=== PATIENT | male | born 1955 | race Caucasian/White ===

== ENCOUNTER 2021-11-27 12:19 | Emergency (ER) | payer MEDICARE ==
[2021-11-27 12:39] VITALS: RESP 20
[2021-11-27] MEDS ORDERED: SODIUM CHLORIDE 0.9% 500 ML 500 ML IV STA (12:49)
--- NOTE | 2021-11-27 13:25 | ED ---
General Adult HPI - General Chief complaint: Shortness of Breath Stated complaint: Respiratory distress Time Seen by Provider: 11/27/21 12:30 Source: patient, EMS, RN notes reviewed, old records reviewed Mode of arrival: EMS Limitations: physical limitation - History of Present Illness Initial comments: This is a 66-year-old male who is a quadriplegic. Patient comes in today because he states about a week ago a little bit of a cold and then on Friday started having some difficulty breathing Friday got a little worse on the little worse but last night he states he was unable to sleep because every time he shut his eyes he felt like he couldn't breathe. Patient states his pulse ox however throughout those days of dyspnea have been normal. Patient denies chest pain or palpitations. Patient denies any fever chills per patient states she had a slight cough about a week ago last couple days. Patient states he is not vaccinated. Patient denies any abdominal pain. Patient any vomiting or diarrhea. Patient is on Coumadin because he had a clot many years ago from being quadriplegic. - Related Data Home Medications Medication Instructions Recorded Confirmed Baclofen [Lioresal] 10 mg PO BID 11/27/21 11/27/21 Celecoxib [CeleBREX] 200 mg PO BID 11/27/21 11/27/21 Ergocalciferol [Vitamin D2 (1250 1,250 mcg PO Q7D 11/27/21 11/27/21 Mcg = 97572 Iu)] Folic Acid 1 mg PO DAILY 11/27/21 11/27/21 Gabapentin [Neurontin] 300 mg PO HS 11/27/21 11/27/21 Sulfamethoxazole/Trimethoprim 1 tab PO Q12H 11/27/21 11/27/21 [Bactrim DS 800-160 mg] Warfarin [Coumadin] 2 mg PO SUSA 11/27/21 11/27/21 Warfarin [Coumadin] 3 mg PO MOTUWETHFR 11/27/21 11/27/21 Allergies Allergy/AdvReac Type Severity Reaction Status Date / Time levofloxacin [From Levaquin] Allergy Swelling Verified 11/27/21 14:26 Review of Systems ROS Statement: Those systems with pertinent positive or pertinent negative responses have been documented in the HPI. ROS Other: All systems not noted in ROS Statement are negative. Past Medical History Past Medical History: Deep Vein Thrombosis (DVT) Additional Past Medical History / Comment(s): pt has been paralyzed since age 12 History of Any Multi-Drug Resistant Organisms: None Reported Past Surgical History: Orthopedic Surgery Additional Past Surgical History / Comment(s): neck, ileostomy Past Psychological History: No Psychological Hx Reported Smoking Status: Never smoker Past Alcohol Use History: None Reported Past Drug Use History: None Reported General Exam - General Exam Comments Initial Comments: GENERAL: Patient is well-developed and well-nourished. Patient is nontoxic and well- hydrated and is in mild distress. ENT: Neck is soft and supple. No significant lymphadenopathy is noted. Oropharynx is clear. Moist mucous membranes. Neck has full range of motion without eliciting any pain. EYES: The sclera were anicteric and conjunctiva were pink and moist. Extraocular movements were intact and pupils were equal round and reactive to light. Eyelids were unremarkable. PULMONARY: Unlabored respirations. Good breath sounds bilaterally. No audible rales rhonchi or wheezing was noted. CARDIOVASCULAR: There is a regular rate and rhythm without any murmurs gallops or rubs. ABDOMEN: Soft and nontender with normal bowel sounds. SKIN: Skin is clear with no lesions or rashes and otherwise unremarkable. NEUROLOGIC: Patient is alert and oriented x3. Cranial nerves II through XII are grossly intact. MUSCULOSKELETAL: Patient is unable to move his lower extremities. LYMPHATICS: No significant lymphadenopathy is noted PSYCHIATRIC: Mildly anxious Limitations: physical limitation Course Vital Signs 11/27/21 12:30 Temperature 98.2 F Pulse Rate 63 Respiratory 20 Rate Blood Pressure 124/91 O2 Sat by Pulse 96 Oximetry Medical Decision Making - Medical Decision Making EKG shows sinus bradycardia with occasional PAC at 60 bpm MD interval 160 QRS is 88 QT interval is 456 QTC is 427. Patient's EKG shows no ST segment elevation or depression. Patient was positive for COVID he did want a monoclonal antibody so the patient received monoclonal antibodies in the emergency department CT of the chest showed no pulmonary embolism or pneumonia - Lab Data Result diagrams: 11/27/21 12:56 11/27/21 12:56 Lab Results 11/27/21 11/27/21 11/27/21 Range/Units 12:56 12:56 12:56 WBC 3.8 (3.8-10.6) k/uL RBC 4.92 (4.30-5.90) m/uL Hgb 14.5 (13.0-17.5) gm/dL Hct 44.4 (39.0-53.0) % MCV 90.3 (80.0-100.0) fL MCH 29.4 (25.0-35.0) pg MCHC 32.6 (31.0-37.0) g/dL RDW 13.5 (11.5-15.5) % Plt Count 170 (150-450) k/uL MPV 8.7 Neutrophils % 69 % Lymphocytes % 18 % Monocytes % 6 % Eosinophils % 4 % Basophils % 0 % Neutrophils # 2.6 (1.3-7.7) k/uL Lymphocytes # 0.7 L (1.0-4.8) k/uL Monocytes # 0.2 (0-1.0) k/uL Eosinophils # 0.2 (0-0.7) k/uL Basophils # 0.0 (0-0.2) k/uL PT 19.3 H (9.0-12.0) sec INR 1.9 H (<1.2) APTT 36.5 H (22.0-30.0) sec Sodium 138 (137-145) mmol/L Potassium 3.8 (3.5-5.1) mmol/L Chloride 109 H (98-107) mmol/L Carbon Dioxide 21 L (22-30) mmol/L Anion Gap 8 mmol/L BUN 14 (9-20) mg/dL Creatinine 0.78 (0.66-1.25) mg/dL Est GFR (CKD-EPI)AfAm >90 (>60 ml/min/1.73 sqM) Est GFR (CKD-EPI)NonAf >90 (>60 ml/min/1.73 sqM) Glucose 97 (74-99) mg/dL Plasma Lactic Acid Sreedhar (0.7-2.0) mmol/L Calcium 9.1 (8.4-10.2) mg/dL Magnesium 2.3 (1.6-2.3) mg/dL Total Bilirubin 0.8 (0.2-1.3) mg/dL AST 28 (17-59) U/L ALT 13 (4-49) U/L Alkaline Phosphatase 92 (38-126) U/L Troponin I (0.000-0.034) ng/mL Total Protein 7.1 (6.3-8.2) g/dL Albumin 4.0 (3.5-5.0) g/dL Coronavirus (PCR) (Not Detectd) 11/27/21 11/27/21 11/27/21 Range/Units 12:56 12:56 12:56 WBC (3.8-10.6) k/uL RBC (4.30-5.90) m/uL Hgb (13.0-17.5) gm/dL Hct (39.0-53.0) % MCV (80.0-100.0) fL MCH (25.0-35.0) pg MCHC (31.0-37.0) g/dL RDW (11.5-15.5) % Plt Count (150-450) k/uL MPV Neutrophils % % Lymphocytes % % Monocytes % % Eosinophils % % Basophils % % Neutrophils # (1.3-7.7) k/uL Lymphocytes # (1.0-4.8) k/uL Monocytes # (0-1.0) k/uL Eosinophils # (0-0.7) k/uL Basophils # (0-0.2) k/uL PT (9.0-12.0) sec INR (<1.2) APTT (22.0-30.0) sec Sodium (137-145) mmol/L Potassium (3.5-5.1) mmol/L Chloride (98-107) mmol/L Carbon Dioxide (22-30) mmol/L Anion Gap mmol/L BUN (9-20) mg/dL Creatinine (0.66-1.25) mg/dL Est GFR (CKD-EPI)AfAm (>60 ml/min/1.73 sqM) Est GFR (CKD-EPI)NonAf (>60 ml/min/1.73 sqM) Glucose (74-99) mg/dL Plasma Lactic Acid Sreedhar 0.9 (0.7-2.0) mmol/L Calcium (8.4-10.2) mg/dL Magnesium (1.6-2.3) mg/dL Total Bilirubin (0.2-1.3) mg/dL AST (17-59) U/L ALT (4-49) U/L Alkaline Phosphatase (38-126) U/L Troponin I <0.012 (0.000-0.034) ng/mL Total Protein (6.3-8.2) g/dL Albumin (3.5-5.0) g/dL Coronavirus (PCR) Detected A (Not Detectd) Disposition Clinical Impression: COVID-19 Disposition: HOME SELF-CARE Instructions (If sedation given, give patient instructions): Coronavirus Disease 2019 (COVID-19) Additional Instructions: Patient should return is any difficulty breathing or shortness of breath. Is patient prescribed a controlled substance at d/c from ED?: No Referrals: Daljit Grace MD [Primary Care Provider] - 1-2 days Time of Disposition: 17:03
[2021-11-27 13:54] LABS: Basophils % (A) 0 %; Eosinophils # (A) 0.2 k/uL (0-0.7); Eosinophils % (A) 4 %; HCT 44.4 % (39.0-53.0); HGB 14.5 gm/dL (13.0-17.5); Lymphocytes # (A) 0.7 k/uL (1.0-4.8); Lymphocytes % (A) 18 %; MCH 29.4 pg (25.0-35.0); MCHC 32.6 g/dL (31.0-37.0); MCV 90.3 fL (80.0-100.0); Mean Platelet Volume 8.7; Monocytes # (A) 0.2 k/uL (0-1.0); Monocytes % (A) 6 %; Neutrophils # (A) 2.6 k/uL (1.3-7.7); Neutrophils % (A) 69 %; Platelet Count 170 k/uL (150-450); RBC 4.92 m/uL (4.30-5.90); RDW 13.5 % (11.5-15.5); WBC 3.8 k/uL (3.8-10.6)
[2021-11-27 14:03] LABS: INR 1.9 (<1.2); Partial Thromboplastin Time 36.5 sec (22.0-30.0); Prothrombin Time 19.3 sec (9.0-12.0)
[2021-11-27 14:20] LABS: ALT 13 U/L (4-49); AST 28 U/L (17-59); African American GFR (CKD) >90 (>60 ml/min/1.73 sqM); Alkaline Phosphatase 92 U/L (38-126); Anion Gap 8 mmol/L; Blood Urea Nitrogen 14 mg/dL (9-20); Calcium 9.1 mg/dL (8.4-10.2); Carbon Dioxide 21 mmol/L (22-30); Chloride 109 mmol/L (98-107); Glucose 97 mg/dL (74-99); Magnesium 2.3 mg/dL (1.6-2.3); Non-African American GFR(CKD) >90 (>60 ml/min/1.73 sqM); Potassium 3.8 mmol/L (3.5-5.1); Sodium 138 mmol/L (137-145); Total Bilirubin 0.8 mg/dL (0.2-1.3); Total Protein 7.1 g/dL (6.3-8.2)
--- NOTE | 2021-11-27 15:10 | CT ---
EXAMINATION TYPE: CT chest angio for PE DATE OF EXAM: 11/27/2021 COMPARISON: none HISTORY: Difficulty breathing CT DLP: 721.9 mGycm CONTRAST: CT chest with contrast and 3D reconstruction with MIP imaging is performed with IV Contrast, patient injected with 100 mL of Isovue 370. Contrast-enhanced CT of the chest was performed through the course of the pulmonary arteries with radha g and mediastinal window settings submitted. 3D reconstruction with MIP imaging was also performed. PULMONARY ARTERIES: The pulmonary arteries and their major tributaries are patent. I do not see alysa dence for sizable filling defect to suggest pulmonary embolic process. LUNGS: The lungs are clear and free of infiltrate. Mild right basilar atelectasis and tiny effusion. No pulmonary nodule or mass is detected MEDIASTINUM: Thoracic aorta is of normal caliber.The heart is enlarged. No evidence for mediastinal mass. No mediastinal lymph nodes greater than 1cm. HILAR STRUCTURES: No evidence for mass. No hilar lymph nodes greater than 1 cm. UPPER ABDOMEN: No significant abnormality is seen. IMPRESSION: 1. No evidence for Pulmonary embolism at this time.
[2021-11-27] MEDS ORDERED: SODIUM CHLORIDE 0.9% 50 ML IVPB ONE (18:30)
[2021-11-27] MEDS ORDERED: SOTROVIMAB (EUA) 500 MG in SODIUM CHLORIDE 0.9% 100 ML IVPB ONE (18:30)
[2021-11-27 20:56] VITALS: BP 142/89; PULSE 58; TEMP 98.7
== END 2021-11-27 19:04 | disposition home or self-care (01) ==
LOC: EC 12:19
DX: U07.1 COVID-19 (principal); Z79.01 Long term (current) use of anticoagulants; Z86.718 Personal history of other venous thrombosis and embolism
CPT/HCPCS: 99285 ×2; 36415; 93005; 80053; 83605; 83735; 84484; 85025; 85610; 85730; 87040; 87070; 87205; 87077; 87186; 87635; 71275; M0247; Q9967; Q0247

== ENCOUNTER 2023-04-27 19:42 | Emergency (ER) | payer MEDICARE ==
[2023-04-27 19:50] VITALS: RESP 18; TEMP 97.4
[2023-04-27 22:20] LABS: Basophils % (A) 0 %; Eosinophils # (A) 0.6 k/uL (0-0.7); Eosinophils % (A) 7 %; HCT 40.8 % (39.0-53.0); HGB 13.8 gm/dL (13.0-17.5); Lymphocytes % (A) 11 %; MCH 29.5 pg (25.0-35.0); MCHC 33.8 g/dL (31.0-37.0); MCV 87.2 fL (80.0-100.0); Mean Platelet Volume 8.7; Monocytes # (A) 0.6 k/uL (0-1.0); Monocytes % (A) 7 %; Neutrophils # (A) 6.2 k/uL (1.3-7.7); Neutrophils % (A) 73 %; Platelet Count 200 k/uL (150-450); RBC 4.68 m/uL (4.30-5.90); RDW 14.1 % (11.5-15.5); WBC 8.5 k/uL (3.8-10.6)
[2023-04-27 22:30] LABS: Partial Thromboplastin Time 37.1 sec (22.0-30.0); Prothrombin Time 20.1 sec (9.0-12.0)
[2023-04-27 22:45] LABS: ALT 14 U/L (4-49); AST 24 U/L (17-59); African American GFR (CKD) 82 (>60 ml/min/1.73 sqM); Albumin 3.7 g/dL (3.5-5.0); Alkaline Phosphatase 82 U/L (38-126); Anion Gap 7 mmol/L; Blood Urea Nitrogen 15 mg/dL (9-20); Calcium 8.9 mg/dL (8.4-10.2); Carbon Dioxide 22 mmol/L (22-30); Chloride 107 mmol/L (98-107); Glucose 96 mg/dL (74-99); Lipase 79 U/L (23-300); Magnesium 2.2 mg/dL (1.6-2.3); Non-African American GFR(CKD) 71 (>60 ml/min/1.73 sqM); Potassium 3.9 mmol/L (3.5-5.1); Sodium 136 mmol/L (137-145); Total Bilirubin 0.6 mg/dL (0.2-1.3); Total Protein 6.3 g/dL (6.3-8.2)
--- NOTE | 2023-04-27 23:40 | XR ---
EXAMINATION TYPE: XR chest 1V portable DATE OF EXAM: 04/27/2023 COMPARISON: CTA chest November 27, 2021 HISTORY: Chest pain. TECHNIQUE: Single AP portable frontal upright view of the chest is obtained. FINDINGS: There is no suspicious focal air space opacity, pleural effusion, or pneumothorax seen. T he cardiac silhouette size remains stable and within normal limits. The osseous structures are inta ct. IMPRESSION: No acute process.
--- NOTE | 2023-04-27 23:52 | CT ---
EXAMINATION TYPE: CT abdomen pelvis w con DATE OF EXAM: 04/27/2023 COMPARISON: CT abdomen and pelvis June 27, 2014 HISTORY: Acute abdominal pain. CT DLP: 1926.8 mGycm, Automated Exposure Control for Dose Reduction was Utilized. CONTRAST: CT scan of the abdomen and pelvis is performed with oral and with IV Contrast, patient injected with 100 mL of Isovue 300. FINDINGS: LUNG BASES: No significant abnormality is appreciated. LIVER/GB: Liver is diffusely low dense suggesting mild diffuse fatty infiltration. PANCREAS: No significant abnormality is seen. SPLEEN: No significant abnormality is seen. ADRENALS: Subcentimeter mass of left adrenal gland axial image 26 is redemonstrated presumed benign. KIDNEYS: Cortical volume loss along with nephrolithiasis in the right kidney redemonstrated. Stable 3 .9 cm upper pole thin-walled cyst axial image 32. Larger calculus left kidney measures 3.4 cm long ax is coronal image 94. Areas of cortical volume loss and smaller calculi in left kidney also noted. No hydronephrosis or obstructing ureteral calculi. No intraluminal calculi poorly distended bladder. BOWEL: Persistent right-sided ostomy and peristomal hernia. No suspicious small or large bowel dilata tion.. PROSTATE/SEMINAL VESICLES: Enlarged prostate consistent with BPH. LYMPH NODES: No greater than 1cm abdominal or pelvic lymph nodes are appreciated. OSSEOUS STRUCTURES: Multilevel spurring in the thoracolumbar spine. Moderate to severe spurring and n arrowing of both hip joints. OTHER: Significant narrowing within the SMA due to noncalcified plaque sagittal images 82 and 83 and coronal images 80 through 84 IMPRESSION: 1. 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 No other CT findings to suggest bowel ischemia. Correla te clinically. 2. New 3.4 cm staghorn type calculus in the left kidney. No hydronephrosis or obstructing ureter calc ashlee. Evidence of renal cortical volume loss bilaterally redemonstrated.
--- NOTE | 2023-04-28 00:21 | ED ---
General Adult HPI - General Chief complaint: Shortness of Breath Stated complaint: Abdominal Pain, Shortness of Breath Time Seen by Provider: 04/27/23 21:06 Source: EMS Mode of arrival: EMS Limitations: physical limitation - History of Present Illness Initial comments: This is a 68-year-old male with a past medical history including paraplegia status post injury when he was 12 years old as well as hypertension presents emergency department for intermittent charts of breath as well as abdominal pain. The patient stated that he has shortness of breath, mostly at night where he feels as if when he goes to sleep he wakes up with shortness of breath and has difficult to fall back asleep. The patient stated this happened intermittently over the last several weeks but stated that is worse with a last 1 day. The patient denied of any shortness of breath on my evaluation or at rest. The patient also reported one day of abdominal pain stretching across his lower abdomen. The patient stated that he was concerned about this as he did have an indwelling, chronic urostomy status post paraplegia. The patient denied any other acute pain or complaints at this time. The patient denied any fevers or chills at this time. - Related Data Home Medications Medication Instructions Recorded Confirmed Baclofen [Lioresal] 10 mg PO BID 11/27/21 11/27/21 Celecoxib [CeleBREX] 200 mg PO BID 11/27/21 11/27/21 Ergocalciferol [Vitamin D2 (1250 1,250 mcg PO Q7D 11/27/21 11/27/21 Mcg = 35027 Iu)] Folic Acid 1 mg PO DAILY 11/27/21 11/27/21 Gabapentin [Neurontin] 300 mg PO HS 11/27/21 11/27/21 Sulfamethoxazole/Trimethoprim 1 tab PO Q12H 11/27/21 11/27/21 [Bactrim DS 800-160 mg] Warfarin [Coumadin] 2 mg PO SUSA 11/27/21 11/27/21 Warfarin [Coumadin] 3 mg PO MOTUWETHFR 11/27/21 11/27/21 Allergies Allergy/AdvReac Type Severity Reaction Status Date / Time levofloxacin [From Levaquin] Allergy Swelling Verified 11/27/21 14:26 Review of Systems ROS Statement: Those systems with pertinent positive or pertinent negative responses have been documented in the HPI. ROS Other: All systems not noted in ROS Statement are negative. Past Medical History Past Medical History: Deep Vein Thrombosis (DVT) Additional Past Medical History / Comment(s): pt has been paralyzed since age 12 History of Any Multi-Drug Resistant Organisms: None Reported Past Surgical History: Orthopedic Surgery Additional Past Surgical History / Comment(s): neck, ileostomy Past Psychological History: No Psychological Hx Reported Smoking Status: Never smoker Past Alcohol Use History: None Reported Past Drug Use History: None Reported General Exam Limitations: no limitations, physical limitation General appearance: alert, in no apparent distress Head exam: Present: atraumatic, normocephalic, normal inspection Eye exam: Present: normal appearance, PERRL Pupils: Present: normal accommodation ENT exam: Present: normal exam, normal oropharynx, mucous membranes moist Neck exam: Present: normal inspection, full ROM Respiratory exam: Present: normal lung sounds bilaterally. Absent: respiratory distress, wheezes Cardiovascular Exam: Present: regular rate, normal rhythm, normal heart sounds GI/Abdominal exam: Present: soft, tenderness (Mild TTP over the left lower abdominal quadrant), normal bowel sounds Extremities exam: Present: other (Decreased range of motion of the upper ext remity secondary to spinal injury. No motion of the lower extremities secondary to paraplegia. All at baseline.). Absent: full ROM Back exam: Present: normal inspection, full ROM Neurological exam: Present: alert, oriented X3, CN II-XII intact Psychiatric exam: Present: normal affect, normal mood Skin exam: Present: warm, dry Course Vital Signs 04/27/23 04/27/23 19:44 23:47 Temperature 97.4 F L Pulse Rate 76 70 Respiratory 18 18 Rate Blood Pressure 150/79 146/92 O2 Sat by Pulse 95 96 Oximetry EKG Findings - EKG Comments: EKG Findings:: An EKG was obtained and was interpreted by myself showing a rate of 56, MA interval 187, QRS duration 95 and QTC of 441. This EKG showed a sinus bradycardia with no ST segment elevation or depression noted. Medical Decision Making - Medical Decision Making Was pt. sent in by a medical professional or institution (, PA, MEDICAL ASSISTANT PRN, urgent care, hospital, or correction...) When possible be specific @ -No Did you speak to anyone other than the patient for history (EMS, parent, family, police, friend...)? What history was obtained from this source @ -No Did you review nursing and triage notes (agree or disagree)? Why? @ -I reviewed and agree with nursing and triage notes Were old charts reviewed (outside hosp., previous admission, EMS record, old EKG, old radiological studies, urgent care reports/EKG's, correction records)? Report findings @ -No old charts were reviewed Differential Diagnosis (chest pain, altered mental status, abdominal pain women, abdominal pain men, vaginal bleeding, weakness, fever, dyspnea, syncope, headache, dizziness, GI bleed, back pain, seizure, CVA, palpatations, mental health)? @ -Pneumonia, pneumothorax, ACS, small bowel obstruction EKG interpreted by me (3pts min.). @ -As above X-rays interpreted by me (1pt min.). @ -Chest x-ray was obtained and was interpreted by myself showing no acute process. CT interpreted by me (1pt min.). @ -CT abdomen and pelvis with IV contrast was obtained and was interpreted by myself showing significant vascular narrowing and the SMA. There was no other CT findings to suggest bowel ischemia. There was a new 3.4 cm staghorn-type calculus in the left kidney with no hydronephrosis or obstructing ureter. There was evidence of renal cortical volume loss bilaterally that was redemonstrated. U/S interpreted by me (1pt. min.). @ -None done What testing was considered but not performed or refused? (CT, X-rays, U/S, labs)? Why? @ -None What meds were considered but not given or refused? Why? @ -None Did you discuss the management of the patient with other professionals (professionals i.e. , PA, MEDICAL ASSISTANT PRN, lab, RT, psych nurse, aids social worker, ediphone operator, teacher, school services officer, telephonic case manager)? Give summary @ -No Was smoking cessation discussed for >3mins.? @ -No Was critical care preformed (if so, how long)? @ -No Were there social determinants of health that impacted care today? How? (Homelessness, low income, unemployed, alcoholism, drug addiction, transportation, low edu. Level, literacy, decrease access to med. care, longterm, rehab)? @ -No Was there de-escalation of care discussed even if they declined (Discuss DNR or withdrawal of care, Hospice)? DNR status @ -No What co-morbidities impacted this encounter? (DM, HTN, Smoking, COPD, CAD, Cancer, CVA, ARF, Chemo, Hep., AIDS, mental health diagnosis, sleep apnea, morbid obesity)? @ -Paraplegia Was patient admitted / discharged? Hospital course, mention meds given and rou te, prescriptions, significant lab abnormalities, going to OR and other pertinent info. @ -The patient was seen and evaluated emergency department. Physical exam, the patient was resting in bed comfortably without any acute distress. Vital signs on admission were stable. Due to the nature the patient's complaints, laboratory workup as well as imaging was obtained at this time. All laboratory workup was within normal limits. Imaging should a chest x-ray within normal limits and a computed tomography scan that showed a staghorn calculus without any pain, hydronephrosis or injury noted to the left side on evaluation. There was also narrowing noted at the SMA however the patient didn't have any tenderness palpation noted over this area. The patient had no other concerning symptoms for bowel ischemia and therefore can be followed up with his primary care physician for this. The patient was resting in bed comfortably and was told of all of these results and understood all of them. The patient had all his questions answered appropriate. The patient was also advised to follow-up with his primary care physician for a possible sleep study as his shortness of breath that occurred while me be falling asleep could be related to sleep apnea. The patient was anything of this and was discharged home in stable condition with his via EMS due to his paraplegia. Undiagnosed new problem with uncertain prognosis? @ -No Drug Therapy requiring intensive monitoring for toxicity (Heparin, Nitro, Insulin, Cardizem)? @ -No Were any procedures done? @ -No Diagnosis/symptom? @ - Shortness of breath and abdominal pain, NOS Acute, or Chronic, or Acute on Chronic? @ -Acute on chronic Uncomplicated (without systemic symptoms) or Complicated (systemic symptoms)? @ -Uncomplicated Side effects of treatment? @ -No Exacerbation, Progression, or Severe Exacerbation? @ -No Poses a threat to life or bodily function? How? (Chest pain, [place], [place], pneumonia, PE, COPD, DKA, ARF, appy, cholecystitis, CVA, Diverticulitis, Homicidal, Suicidal, threat to staff... and all critical care pts) @ -No - Lab Data Result diagrams: 04/27/23 22:04 04/27/23 22:14 Lab Results 04/27/23 04/27/23 04/27/23 Range/Units 22:04 22:14 22:14 WBC 8.5 (3.8-10.6) k/uL RBC 4.68 (4.30-5.90) m/uL Hgb 13.8 (13.0-17.5) gm/dL Hct 40.8 (39.0-53.0) % MCV 87.2 (80.0-100.0) fL MCH 29.5 (25.0-35.0) pg MCHC 33.8 (31.0-37.0) g/dL RDW 14.1 (11.5-15.5) % Plt Count 200 (150-450) k/uL MPV 8.7 Neutrophils % 73 % Lymphocytes % 11 % Monocytes % 7 % Eosinophils % 7 % Basophils % 0 % Neutrophils # 6.2 (1.3-7.7) k/uL Lymphocytes # 1.0 (1.0-4.8) k/uL Monocytes # 0.6 (0-1.0) k/uL Eosinophils # 0.6 (0-0.7) k/uL Basophils # 0.0 (0-0.2) k/uL PT 20.1 H (9.0-12.0) sec INR 2.0 H (<1.2) APTT 37.1 H (22.0-30.0) sec Sodium 136 L (137-145) mmol/L Potassium 3.9 (3.5-5.1) mmol/L Chloride 107 (98-107) mmol/L Carbon Dioxide 22 (22-30) mmol/L Anion Gap 7 mmol/L BUN 15 (9-20) mg/dL Creatinine 1.06 (0.66-1.25) mg/dL Est GFR (CKD-EPI)AfAm 82 (>60 ml/min/1.73 sqM) Est GFR (CKD-EPI)NonAf 71 (>60 ml/min/1.73 sqM) Glucose 96 (74-99) mg/dL Calcium 8.9 (8.4-10.2) mg/dL Magnesium 2.2 (1.6-2.3) mg/dL Total Bilirubin 0.6 (0.2-1.3) mg/dL AST 24 (17-59) U/L ALT 14 (4-49) U/L Alkaline Phosphatase 82 (38-126) U/L Troponin I (0.000-0.034) ng/mL NT-Pro-B Natriuret Pep pg/mL Total Protein 6.3 (6.3-8.2) g/dL Albumin 3.7 (3.5-5.0) g/dL Lipase 79 (23-300) U/L 04/27/23 04/27/23 Range/Units 22:14 22:14 WBC (3.8-10.6) k/uL RBC (4.30-5.90) m/uL Hgb (13.0-17.5) gm/dL Hct (39.0-53.0) % MCV (80.0-100.0) fL MCH (25.0-35.0) pg MCHC (31.0-37.0) g/dL RDW (11.5-15.5) % Plt Count (150-450) k/uL MPV Neutrophils % % Lymphocytes % % Monocytes % % Eosinophils % % Basophils % % Neutrophils # (1.3-7.7) k/uL Lymphocytes # (1.0-4.8) k/uL Monocytes # (0-1.0) k/uL Eosinophils # (0-0.7) k/uL Basophils # (0-0.2) k/uL PT (9.0-12.0) sec INR (<1.2) APTT (22.0-30.0) sec Sodium (137-145) mmol/L Potassium (3.5-5.1) mmol/L Chloride (98-107) mmol/L Carbon Dioxide (22-30) mmol/L Anion Gap mmol/L BUN (9-20) mg/dL Creatinine (0.66-1.25) mg/dL Est GFR (CKD-EPI)AfAm (>60 ml/min/1.73 sqM) Est GFR (CKD-EPI)NonAf (>60 ml/min/1.73 sqM) Glucose (74-99) mg/dL Calcium (8.4-10.2) mg/dL Magnesium (1.6-2.3) mg/dL Total Bilirubin (0.2-1.3) mg/dL AST (17-59) U/L ALT (4-49) U/L Alkaline Phosphatase (38-126) U/L Troponin I <0.012 (0.000-0.034) ng/mL NT-Pro-B Natriuret Pep 229 pg/mL Total Protein (6.3-8.2) g/dL Albumin (3.5-5.0) g/dL Lipase (23-300) U/L Disposition Clinical Impression: Abdominal pain, Staghorn calculus, Shortness of breath Disposition: HOME SELF-CARE Condition: Stable Instructions (If sedation given, give patient instructions): Abdominal Pain (ED), Shortness of Breath (ED) Is patient prescribed a controlled substance at d/c from ED?: No Referrals: Daljit Grace MD [Primary Care Provider] - 1-2 days Time of Disposition: 00:05
[2023-04-28 01:34] VITALS: BP 145/86; PULSE 65
== END 2023-04-28 01:34 | disposition home or self-care (01) ==
LOC: EC 19:42
DX: N20.0 Calculus of kidney (principal); R06.02 Shortness of breath; Z88.6 Allergy status to analgesic agent
CPT/HCPCS: 36415; 93005; 83880; 80053; 83690; 83735; 84484; 85025; 85610; 85730; 71045; 74177; 99285; Q9967